=== PATIENT | female | born 1980 | race American Indian/Alaskan Native ===

== ENCOUNTER 2018-03-30 03:09 | Emergency (ER) | payer MEDICAID ==
[2018-03-30] MEDS ORDERED: NORCO 7.5/325 PO ONE (05:20)
--- NOTE | 2018-03-30 05:31 | Emergency Department Report ---
ED ENT HPI - General Chief complaint: Dental/Oral Stated complaint: TOOTHACHE Time Seen by Provider: 03/30/18 05:19 Source: patient Mode of arrival: Ambulatory Limitations: No Limitations - History of Present Illness Initial comments: 37-year-old -[place] female comes in complaining of left tooth ache 3 weeks. Patient reports that has gotten worse today. She reports that she is last took Tylenol PM approximately 7 PM and woke up this morning with for face swollen. Patient reports that she only takes Benadryl for seasonal allergies. She reports that she is allergic to nonsteroidal anti-inflammatories which causes a anaphylactic incident. Patient also reports that she is allergic to gentamicin. MD complaint: tooth pain - Related Data Previous Rx's Medication Instructions Recorded Last Taken Type Amoxicillin [Amoxicillin TAB] 875 mg PO BID #20 tablet 03/30/18 Unknown Rx traMADol [Ultram 50 MG tab] 50 mg PO Q6HR PRN #20 tablet 03/30/18 Unknown Rx Allergies Allergy/AdvReac Type Severity Reaction Status Date / Time gentamicin Allergy Itching Verified 03/30/18 03:35 latex Allergy Hives Verified 03/30/18 03:35 NSAIDS (Non-Steroidal Allergy Anaphylaxis Verified 03/30/18 03:35 Anti-Inflamma fish Allergy Anaphylaxis Uncoded 03/30/18 03:35 ED Dental HPI - General Chief complaint: Dental/Oral Stated complaint: TOOTHACHE Time Seen by Provider: 03/30/18 05:19 Source: patient Mode of arrival: Ambulatory Limitations: No Limitations - Related Data Previous Rx's Medication Instructions Recorded Last Taken Type Amoxicillin [Amoxicillin TAB] 875 mg PO BID #20 tablet 03/30/18 Unknown Rx traMADol [Ultram 50 MG tab] 50 mg PO Q6HR PRN #20 tablet 03/30/18 Unknown Rx Allergies Allergy/AdvReac Type Severity Reaction Status Date / Time gentamicin Allergy Itching Verified 03/30/18 03:35 latex Allergy Hives Verified 03/30/18 03:35 NSAIDS (Non-Steroidal Allergy Anaphylaxis Verified 03/30/18 03:35 Anti-Inflamma fish Allergy Anaphylaxis Uncoded 03/30/18 03:35 ED Review of Systems ROS: Stated complaint: TOOTHACHE Other details as noted in HPI Constitutional: denies: chills, fever Eyes: denies: eye pain, eye discharge, vision change ENT: dental pain Respiratory: denies: cough, shortness of breath, wheezing Cardiovascular: denies: chest pain, palpitations ED Past Medical Hx - Past Medical History Previous Medical History?: Yes Hx Asthma: Yes - Surgical History Past Surgical History?: Yes Additional Surgical History: facial, Jaw, LEAP on cervix, C sect X1, - Social History Smoking Status: Current Every Day Smoker Substance Use Type: Alcohol, Marijuana - Medications Home Medications: Home Medications Medication Instructions Recorded Confirmed Last Taken Type Amoxicillin [Amoxicillin TAB] 875 mg PO BID #20 tablet 03/30/18 Unknown Rx traMADol [Ultram 50 MG tab] 50 mg PO Q6HR PRN #20 tablet 03/30/18 Unknown Rx ED Physical Exam - General Limitations: No Limitations General appearance: alert, in no apparent distress - Head Head exam: Present: atraumatic, normocephalic - Eye Eye exam: Present: normal appearance - Expanded ENT Exam Expanded Teeth exam: Present: dental caries (11), fractured tooth # (11), gingival enlargement Throat exam: Positive: normal inspection - Neck Neck exam: Present: other (left cheek swelling and mild tenderness close to the left nare) - Respiratory Respiratory exam: Present: normal lung sounds bilaterally - Cardiovascular Cardiovascular Exam: Present: regular rate - Neurological Exam Neurological exam: Present: alert, oriented X3 - Psychiatric Psychiatric exam: Present: normal affect, normal mood - Skin Skin exam: Present: warm, dry, intact, normal color. Absent: rash ED Course Vital Signs 03/30/18 03:08 Temperature 98.0 F Pulse Rate 75 Respiratory 18 Rate Blood Pressure 147/105 O2 Sat by Pulse 99 Oximetry ED Medical Decision Making - Medical Decision Making Patient has been evaluated by this provider in fast track. Discuss with patient will give her a [place] for pain. I will place patient on amoxicillin 875 mg twice a day for 10 days. Discussed the patient I'll discharge her on tramadol for pain one tablet every 6 hours as needed for pain. Discussed with patient do not drive or operate heavy machinery while taking tramadol. I also discussed the patient that I'll list a few dentists in the community that will work with her while not having insurance. Patient verbalized understanding. Critical care attestation.: If time is entered above; I have spent that time in minutes in the direct care of this critically ill patient, excluding procedure time. ED Disposition Clinical Impression: Abscessed tooth Disposition: [id number] TO HOME OR SELFCARE Is pt being admited?: No Does the pt Need Aspirin: No Condition: Stable Instructions: Dental Abscess (ED) Additional Instructions: Please complete antibiotics as prescribed. Please take tramadol for pain do not operate heavy machinery while taking tramadol. It is very important for him to follow up with the dentist/oral surgeon for treatment and management of her abscess and fractured teeth. Prescriptions: Amoxicillin [Amoxicillin TAB] 875 mg PO BID #20 tablet traMADol [Ultram 50 MG tab] 50 mg PO Q6HR PRN #20 tablet PRN Reason: Pain Referrals: PRIMARY CARE, [Primary Care Provider] - 3-5 Days [facility] [Outside] - 3-5 Days [facility] [Outside] - 3-5 Days [facility] [Provider Group] - 3-5 Days Forms: Work/School Release Form(ED), Accompanied Note
[2018-03-30 06:03] VITALS: BP 142/88
== END 2018-03-30 06:03 | disposition home or self-care (01) ==
LOC: ED 03:09
DX: K04.7 Periapical abscess without sinus (principal); J45.909 Unspecified asthma, uncomplicated; F12.10 Cannabis abuse, uncomplicated; Z88.1 Allergy status to other antibiotic agents; Z88.6 Allergy status to analgesic agent; Z91.013 Allergy to seafood; Z91.040 Latex allergy status
CPT/HCPCS: 99282